=== PATIENT | male | born 1990 | race Caucasian/White ===

== ENCOUNTER 2017-07-02 01:38 | Emergency (ER) | payer SELFPAY ==
[~2017-07-02] VITALS: Ht 172.7 cm; Wt 90.7 kg
--- NOTE | 2017-07-02 01:38 | NUR ---
Patient BIB [facility] to be evaluated as pre-book, transferred to bed 3. RN evaluating patient at bedside.
[2017-07-02 01:41] VITALS: BP 156/85
[2017-07-02] MEDS ORDERED: NACL 0.9% 1,000 ML IV ONE (01:50)
--- NOTE | 2017-07-02 02:04 | NUR ---
PATIENT IS A 27 Y/O MALE BIB [facility] WHO PRESENTS TO THE ED C/O HIGH HEART RATE. PER OFFICER, PT WAS FOUND OUTSIDE TO BE UNDER THE INFLUENCE. PT IN NO SIGNS OF PAIN. PT DENIES CP, SOB, N/V/D. PUPILS DILATED. PT AAOX3, RR EVEN/UNLABORED. PT REPOSITIONED FOR COMFORT, BED IN LOWEST POSITION. ER MD DR. ARIZA NOTIFIED. WILL CONTINUE TO MONITOR.
--- NOTE | 2017-07-02 02:05 | NUR ---
Dr. Huizar evaluating patient at bedside.
[2017-07-02 02:15] VITALS: BP 147/80
--- NOTE | 2017-07-02 02:15 | NUR ---
Patient discharged with v/s stable. Written and verbal after care instructions given and explained. Patient verbalized understanding. Police with in custody. All questions addressed prior to discharge. Advised to follow up with PMD.
== END 2017-07-02 02:15 ==
LOC: MED 01:38
DX: Z02.89 Encounter for other administrative examinations (principal); R00.0 Tachycardia, unspecified; R07.89 Other chest pain; Z72.0 Tobacco use; Z88.1 Allergy status to other antibiotic agents; Z88.5 Allergy status to narcotic agent; Z88.8 Allergy status to other drugs, medicaments and biological substances; Z90.89 Acquired absence of other organs
CPT/HCPCS: 93005; 99283

== ENCOUNTER 2020-08-18 15:00 | Emergency (ER) | payer OTHER ==
[~2020-08-18] VITALS: Ht 172.7 cm; Wt 86.2 kg
--- NOTE | 2020-08-18 15:00 | NUR ---
Patient BIBA BLS, transferred to bed 5. RN evaluating the patient at bedside.
[2020-08-18 15:04] VITALS: BP 141/81
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
--- NOTE | 2020-08-18 15:28 | NUR ---
PT AMBULATED TO RESTROOM FOR URINE SAMPLE
--- NOTE | 2020-08-18 15:43 | NUR ---
LATRICE Mcdowell is evaluating the patient at bedside.
--- NOTE | 2020-08-18 16:01 | NUR ---
PT STATES THAT HE IS HUNGRY. PT PROVIDED WITH TUNA SANDWICH, 2 APPLE JUICES, 2 ORANGE JUICES, 2 APPLE SAUCE CUPS, 2 DERICK CRACKERS, 1 WATER CUP.
--- NOTE | 2020-08-18 16:14 | NUR ---
URINE SAMPLE COLLECTED, WALKED TO LAB AND HANDED TO ARINA SUTHERLAND TECH.
[2020-08-18 16:17] VITALS: BP 131/87
--- NOTE | 2020-08-18 16:23 | NUR ---
PT LAYING IN SUPINE POSITION PER REQUEST, BOTH EYES CLOSED. PT COMPLETED 1 TUNA SANDWICH, 1 DERICK CRACKER, 1 ORANGE JUICE, 1 WATER CUP, 2 APPLE JUICES, 2 APPLE JUICES. PT PLACED ON DISHWASHER BUSSER. EQUAL CHEST RISE AND FALL. NO DISTRESS NOTED. ALL PT NEEDS MET AT THIS TIME.
--- NOTE | 2020-08-18 16:33 | NUR ---
URINAL PROVIDED AT BEDSIDE PER PT REQUEST. ALL PT NEEDS MET AT THIS TIME.
[2020-08-18 16:36] LABS: BARBITURATE, URINE NEGATIVE ng/ml (NEG <=200); BENZODIAZEPINE, URINE NEGATIVE ng/mL (NEG <=200); CANNABINOID, URINE POSITIVE ng/mL (NEG <=50); COCAINE, URINE NEGATIVE ng/mL (NEG <=300); OPIATE, URINE NEGATIVE ng/mL (NEG <=2000); PHENCYCLIDINE SCREEN,URINE NEGATIVE ng/mL (NEG <=25)
--- NOTE | 2020-08-18 16:40 | NUR ---
PT PROVIDED WITH HOMELESS RESOURCES AND BECAME AGITATED AT BEDSIDE. PT STATES "I AM NOT HOMELESS. I HAVE PTSD AND THE GOVERNMENT IS TRYING TO CONTROL ME." PT DENIED HOMELESS RESOURCE PACKET.
--- NOTE | 2020-08-18 16:52 | NUR ---
PT PRESENT LAYING DOWN PRONE AT BEDSIDE. WHEN ASKED REGARDING NEEDS, PT BECAME AGITATED AND UNCOOPERATIVE WITH SIGNING HOMELESS PATIENT WAIVER FORM. UNABLE TO OBTAIN SIGNATURE OR ADDRESS NEEDS AT THIS TIME. PT REMAINS ON LEASING PROPERTY MANAGER, VSS. EQUAL CHEST RISE AND FALL. BED LOCKED IN LOWEST POSITION, SIDE RAILS X 2.
--- NOTE | 2020-08-18 16:57 | NUR ---
PT BECAME COMBATIVE AND ELOPED UPON DISCUSSING DISCHARGE. PT BECAME IRRITATED, GRABBED BELONGINGS AND WALKED OUT OF AMBULANCE BAY. UNABLE TO OBTAIN DISCHARGE VITAL SIGNS AND SIGNATURES. SECURITY NOTIFIED AND CHARGE NURSE MADE AWARE.
--- NOTE | 2020-08-18 17:00 | NUR ---
Andrew killian in ED - 08/18/20 at 1724 by VINCENT PT BECAME COMBATIVE UPON SIGNING DISCHARGE PAPERWORK. UNABLE TO OBTAIN DISCHARGE SIGNATURE. PT WALKED OUT FROM AMBULANCE BAY ENTRANCE.
== END 2020-08-18 16:57 | disposition home or self-care (01) ==
LOC: MED 15:00
DX: F10.129 Alcohol abuse with intoxication, unspecified (principal); F17.290 Nicotine dependence, other tobacco product, uncomplicated; F15.90 Other stimulant use, unspecified, uncomplicated; Z88.1 Allergy status to other antibiotic agents; Z88.5 Allergy status to narcotic agent; Z88.8 Allergy status to other drugs, medicaments and biological substances; Z90.49 Acquired absence of other specified parts of digestive tract
CPT/HCPCS: 80305; 81002; 99283